=== PATIENT | female | born 1950 | race Caucasian/White ===

== ENCOUNTER → 2016-08-18 | Outpatient (CLI) | payer OTHER, MEDICARE | LOC: BMCIMAGING 12:45 | PROVIDERS: ATTEND Internal Medicine | DX: Z12.39 Encounter for other screening for malignant neoplasm of breast (principal); N63 Unspecified lump in breast ==

== ENCOUNTER → 2017-03-18 | Outpatient (CLI) | payer OTHER, MEDICARE | LOC: BMCIMAGING 09:01 | PROVIDERS: ATTEND Internal Medicine | DX: Z12.31 Encounter for screening mammogram for malignant neoplasm of breast (principal); Z80.3 Family history of malignant neoplasm of breast | CPT/HCPCS: G0202 ==

== ENCOUNTER → 2018-03-19 | Outpatient (CLI) | payer OTHER, MEDICARE | LOC: BMCIMAGING 12:41 | PROVIDERS: ATTEND Internal Medicine | DX: Z12.31 Encounter for screening mammogram for malignant neoplasm of breast (principal); Z80.3 Family history of malignant neoplasm of breast ==

== ENCOUNTER → 2018-03-31 | Outpatient (CLI) | payer OTHER, MEDICARE | LOC: BMCIMAGING 15:06 | PROVIDERS: ATTEND Internal Medicine | DX: Z13.820 Encounter for screening for osteoporosis (principal); Z78.0 Asymptomatic menopausal state; E07.9 Disorder of thyroid, unspecified; Z79.899 Other long term (current) drug therapy; M81.0 Age-related osteoporosis without current pathological fracture ==

== ENCOUNTER → 2018-06-02 | Outpatient (CLI) | payer OTHER, MEDICARE | LOC: BMCIMAGING 11:08 | PROVIDERS: ATTEND Orthopaedic Surgery Hand Surgery | DX: M18.0 Bilateral primary osteoarthritis of first carpometacarpal joints (principal); M85.641 Other cyst of bone, right hand ==

== ENCOUNTER → 2018-07-06 | Outpatient (CLI) | payer OTHER, MEDICARE | LOC: BMCIMAGING 09:19 | PROVIDERS: ATTEND Physician Assistant | DX: M25.561 Pain in right knee (principal) ==